=== PATIENT | male | born 1950 | race Caucasian/White ===

== ENCOUNTER 2018-03-21 06:10 | Day surgery (SDC) | payer MEDICARE, BC ==
[~2018-03-21 06:10] MED LIST: Acetaminophen 325 MG Tab PO SCH; Lactated Ringers 1,000 ML IV SCH; Lidocaine 1%/Sod Bicarbonate in NS 8.4% 1 ML Syringe IDERM PRN; Pregabalin 25 MG Cap PO SCH; Sodium Chloride 0.9% 10 ML Syringe FLUSH PRN
[2018-03-21] MEDS ORDERED: Iodine/Sodium Iodide 2% Tincture 30 ML Bottle ONE (06:46)
[2018-03-21] MEDS ORDERED: ceFAZolin 1 GM Vial ONE ×2 (06:46→06:54)
[2018-03-21] MEDS ORDERED: Vancomycin 1 GM SDV ONE (06:46)
[2018-03-21] MEDS ORDERED: Bupivacaine 0.25% 30 ML SDV ONE (06:46)
[2018-03-21] MEDS ORDERED: Morphine 2 MG/ML Syringe IVPUSH PRN (06:52)
[2018-03-21] MEDS ORDERED: fentaNYL 100 MCG/2 ML SDV ONE (06:53)
[2018-03-21] MEDS ORDERED: Midazolam 1 MG/ML 2 ML SDV ONE (06:53)
[2018-03-21] MEDS ORDERED: Propofol 200 MG/20 ML SDV ONE (06:53)
[2018-03-21] MEDS ORDERED: Ketamine 500 mg/10 ML MDV ONE (06:54)
[2018-03-21] MEDS ORDERED: Bupivacaine 0.75% 30 ML SDV ONE (06:54)
[2018-03-21] MEDS ORDERED: Ondansetron 4 MG/2 ML SDV ONE (06:54)
[2018-03-21] MEDS ORDERED: Lidocaine 1% 4 ML ONE (06:54)
[2018-03-21] MEDS: oxyCODONE ER 10 MG TAB.ER PO SCH ×2 (07:05→07:06)
[2018-03-21] MEDS ORDERED: Dexamethasone 4 MG/ML 5 ML MDV ONE (07:29)
[2018-03-21] MEDS ORDERED: Morphine 8 MG, EPINEPHrine 0.3 MG, Cefuroxime 750 MG, Ketorolac 30 MG, Sodium Chloride ... ONE ×5 (07:35)
[2018-03-21] MEDS ORDERED: Phenylephrine/Normal Saline 100 MCG/ML 10 ML Syringe ONE (08:02)
[2018-03-21] MEDS ORDERED: Lactated Ringers 1,000 ML ONE ×2 (08:02→08:23)
--- NOTE | 2018-03-21 08:06 | PCM.PREANE ---
Preanesthetic Assessment - Procedure Proposed Procedure: Left Total Knee Arthroplasty - Anesthesia/Transfusion/Family Hx Anesthesia History: Prior Anesthesia Without Reaction Family History of Anesthesia Reaction: No Transfusion History: No Prior Transfusion(s) - Review of Systems General: No Symptoms Pulmonary: Cough (Chronic. Negative work up/chest x-ray.) Cardiovascular: No Symptoms Gastrointestinal: No Symptoms Neurological: No Symptoms Other: Reports: None - Physical Assessment NPO Status Date: 03/20/18 NPO Status Time: 20:30 O2 Sat by Pulse Oximetry: 93 Respiratory Rate: 16 Vital Signs: Last Vital Signs Temp 36.6 C 03/21/18 06:15 Pulse 73 03/21/18 06:15 Resp 16 03/21/18 06:15 BP 141/86 H 03/21/18 06:15 Pulse Ox 93 L 03/21/18 06:15 Height: 1.78 m Weight: 102.058 kg ASA Class: 2 Mental Status: Alert & Oriented x3 Airway Class: Mallampati = 3 Dentition: Reports: Normal Dentition, [place](s) Thyro-Mental Finger Breadths: 2 Mouth Opening Finger Breadths: 3 ROM/Head Extension: Full Lungs: Clear to Auscultation, Normal Respiratory Effort Cardiovascular: Regular Rate, Regular Rhythm - Allergies Allergies/Adverse Reactions: Allergies Allergy/AdvReac Type Severity Reaction Status Date / Time No Known Allergies Allergy Verified 03/18/18 14:45 - Acknowledgements Anesthesia Type Planned: Spinal, Regional Block (Adductor Canal Block, Post op. 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 Musculoskeletal History: Reports: Other (See Below) Other Musculoskeletal History: right foot pain, knee pain Neurological History: Reports: None Psychiatric History: Reports: None Endocrine/Metabolic History: Reports: None Hematologic History: Reports: None Immunologic History: Reports: None Oncologic (Cancer) History: Reports: None Dermatologic History: Reports: None - Past Surgical History Head Surgeries/Procedures: Reports: None HEENT Surgical History: Reports: None Cardiovascular Surgical History: Reports: None Respiratory Surgical History: Reports: None GI Surgical History: Reports: Colonoscopy Female Surgical History: Reports: None Male Surgical History: Reports: None Neurological Surgical History: Reports: None Musculoskeletal Surgical History: Reports: Other (See Below) Other Musculoskeletal Surgeries/Procedures:: rotator cuff repair, tendesis of biceps tendon Dermatological Surgical History: Reports: None - HOME MEDS Home Medications: Home Meds Cholecalciferol (Vitamin D3) [Vitamin D3] 5,000 unit PO DAILY 03/18/18 [History] Glucosamine/D3/Boswellia [place] [Osteo Bi-Flex Caplet] 1 tab PO DAILY 03/18/18 [ History] Magnesium Oxide [Magnesium] 1,000 mg PO DAILY 03/18/18 [History] - CURRENT (IN HOUSE) MEDS Current Meds: Current Medications Acetaminophen (Tylenol) 975 mg PO ASDIRECTED [facility] Stop: 03/21/18 18:00 Last Admin: 03/21/18 07:05 Dose: 975 mg Aspirin (Ecotrin) 325 mg PO BID JOSEPH Bisacodyl (Dulcolax) 5 mg PO DAILY PRN PRN Reason: Constipation Cyclobenzaprine HCl (Flexeril) 10 mg PO TID PRN PRN Reason: Spasms Docusate Sodium (Colace) 100 mg PO BID JOSEPH Famotidine (Pepcid) 20 mg PO Q12H [facility] Lactated Ringer's (Ringers, Lactated) 1,000 mls @ 125 mls/hr IV ASDIRECTED [facility] Stop: 03/21/18 23:00 Last Admin: 03/21/18 06:35 Dose: 125 mls/hr Cefazolin Sodium/Dextrose 2 gm (/ Premix) 50 mls @ 100 mls/hr IV Q8H [facility] Stop: 03/22/18 07:29 Ketorolac Tromethamine (Toradol) 15 mg IVPUSH Q6H PRN PRN Reason: Pain Lidocaine/Sodium Bicarbonate (Buffered Lidocaine 1% In Ns 8.4%) 0.25 ml IDERM ONETIME PRN PRN Reason: Prior to IV Start Stop: 03/21/18 18:00 Magnesium Hydroxide (Milk Of Magnesia) 30 ml PO BID PRN PRN Reason: Constipation Morphine Sulfate (Morphine) 2 mg IVPUSH Q2H PRN PRN Reason: Breakthrough Pain Naloxone HCl (Narcan) 0.1 mg IVPUSH Q5M PRN PRN Reason: Oversedation Ondansetron HCl (Zofran) 4 mg IVPUSH Q6H PRN PRN Reason: Nausea/Vomiting Oxycodone HCl (Oxycontin) 10 mg PO ASDIRECTED [facility] Stop: 03/21/18 18:00 Last Admin: 03/21/18 07:06 Dose: 10 mg Oxycodone/Acetaminophen (Percocet 325-5 Mg) 1 - 2 tab PO Q4H PRN PRN Reason: Pain Pregabalin (Lyrica) 50 mg PO ASDIRECTED [facility] Stop: 03/21/18 18:00 Last Admin: 03/21/18 07:05 Dose: 50 mg Senna (Senna) 8.6 mg PO BID PRN PRN Reason: Constipation Sodium Chloride (Saline Flush) 10 ml FLUSH ASDIRECTED PRN PRN Reason: Keep Vein Open Stop: 03/21/18 18:00 Discontinued Medications Bupivacaine HCl (Marcaine 0.25%) Confirm Administered Dose 30 ml .ROUTE .STK- MED ONE Stop: 03/21/18 06:47 Bupivacaine HCl (Sensorcaine-Mpf 0.75%) Confirm Administered Dose 30 ml .ROUTE .STK-MED ONE Stop: 03/21/18 06:55 Cefazolin Sodium (Ancef) Confirm Administered Dose 2 gm .ROUTE .STK-MED ONE Stop: 03/21/18 06:47 Cefazolin Sodium (Ancef) Confirm Administered Dose 2 gm .ROUTE .STK-MED ONE Stop: 03/21/18 06:55 Morphine Sulfate 8 mg/Epinephrine HCl 0.3 mg/Cefuroxime Sodium 750 mg/Ketorolac Tromethamine 30 mg/Sodium Chloride 27.9 ml 0 mg .XX ONETIME ONE Stop: 03/21/18 07:36 Dexamethasone (Dexamethasone) Confirm Administered Dose 20 mg .ROUTE .STK-MED ONE Stop: 03/21/18 07:30 Fentanyl (Sublimaze) Confirm Administered Dose 100 mcg .ROUTE .STK-MED ONE Stop: 03/21/18 06:54 Glycopyrrolate () Confirm Administered Dose 1 mg .ROUTE .STK-MED ONE Stop: 03/21/18 07:32 Lidocaine HCl (Xylocaine-Mpf 1%) Confirm Administered Dose 4 mls @ as directed .ROUTE .STK-MED ONE Stop: 03/21/18 06:55 Iodine (Iodine 2% Mild Tincture) Confirm Administered Dose 30 ml .ROUTE .STK- MED ONE Stop: 03/21/18 06:47 Ketamine HCl (Ketalar) Confirm Administered Dose 500 mg .ROUTE .STK-MED ONE Stop: 03/21/18 06:55 Lidocaine HCl (Xylocaine-Mpf 1%) Confirm Administered Dose 5 ml .ROUTE .STK-MED ONE Stop: 03/21/18 06:55 Midazolam HCl (Versed 1 Mg/Ml) Confirm Administered Dose 2 mg .ROUTE .STK-MED ONE Stop: 03/21/18 06:54 Ondansetron HCl (Zofran) Confirm Administered Dose 4 mg .ROUTE .STK-MED ONE Stop: 03/21/18 06:55 Propofol (Diprivan 20 Ml) Confirm Administered Dose 600 mg .ROUTE .STK-MED ONE Stop: 03/21/18 06:54 Tranexamic Acid (Cyklokapron) Confirm Administered Dose 1,000 mg .ROUTE .STK- MED ONE Stop: 03/21/18 06:46 Vancomycin HCl (Vancomycin) Confirm Administered Dose 1 gm .ROUTE .STK-MED ONE Stop: 03/21/18 06:47
[2018-03-21] MEDS ORDERED: Ondansetron 4 MG/2 ML SDV IVPUSH PRN ×2 (08:07→09:00)
[2018-03-21] MEDS ORDERED: fentaNYL 100 MCG/2 ML SDV IVPUSH PRN (08:07)
[2018-03-21] MEDS ORDERED: Albuterol 0.083% 2.5 MG/3 ML Neb Soln NEB ONE (08:07)
[2018-03-21] MEDS ORDERED: Meperidine PF 50 MG/ML Syringe IVPUSH PRN (08:07)
[2018-03-21] MEDS ORDERED: ePHEDrine 50 MG/ML SDV IVPUSH PRN (08:07)
[2018-03-21] MEDS ORDERED: HYDROmorphone 0.5 MG/0.5 ML Syringe IVPUSH PRN (08:07)
[2018-03-21] MEDS ORDERED: diphenhydrAMINE 50 MG/ML SDV IVPUSH PRN (08:07)
[2018-03-21] MEDS ORDERED: Bisacodyl 5 MG Tab PO PRN (09:00)
[2018-03-21] MEDS ORDERED: Magnesium Hydroxide 400 MG/5 ML Susp 30 ML Cup PO PRN (09:00)
[2018-03-21] MEDS ORDERED: Naloxone 0.4 MG/ML SDV IVPUSH PRN (09:00)
[2018-03-21] MEDS ORDERED: Cyclobenzaprine 10 MG Tab PO PRN (09:00)
[2018-03-21] MEDS ORDERED: Ketorolac 15 MG/ML SDV IVPUSH PRN (09:00)
[2018-03-21] MEDS ORDERED: Sennosides 8.6 MG Tab PO PRN (09:00)
[2018-03-21] MEDS ORDERED: EPINEPHrine 1 MG/ML SDV ONE (09:08)
[2018-03-21] MEDS ORDERED: Ropivacaine 0.5% 5 MG/ML 30 ML SDV ONE (09:08)
--- NOTE | 2018-03-21 09:49 | CR ---
Left knee: AP and lateral views of the left knee were obtained. Comparison: No prior knee exam. Knee prosthesis is seen. Components are aligned. Soft tissue air is noted from the surgical procedure. No acute bony abnormality is seen. Impression: 1. Satisfactory radiographic appearance of recently placed left knee prosthesis. Diagnostic code #2
--- NOTE | 2018-03-21 10:30 | PCM.POSTAN ---
POST ANESTHESIA ASSESSMENT - MENTAL STATUS Mental Status: Alert, Oriented - VITAL SIGNS Pulse Rate: 73 SaO2: 94 Resp Rate: 16 Blood Pressure: 94/57 Temperature: 36.4 C - RESPIRATORY Respiratory Status: Respiratory Rate WNL, Airway Patent, O2 Saturation Stable, Supplemental Oxygen - CARDIOVASCULAR CV Status: Pulse Rate WNL, Blood Pressure Stable - GASTROINTESTINAL GI Status: No Symptoms - PAIN Pain Score: 0 - POST OP HYDRATION Hydration Status: Adequate & Stable
--- NOTE | 2018-03-21 10:32 | PCM.SN ---
- Free Text/Narrative Note: Left selective femoral nerve block at the adductor canal for post-procedure pain control under US guidance requested by Dr. De Luna. Time Out: 916 Start:911 End: 920 Chart reviewed. Consent signed. Questions answered. Appropriate monitors applied. Time out performed. Left mid-shaft femur identified with ultrasound, scanning medially of femur, the femoral artery in the adductor canal visualized , and the femoral nerve located laterally to the artery. The skin was prepped lateral to the ultrasound probe with chlorahexadine times two. The 21ga 4 insulated block needle was inserted under direct ultrasound guidance into the adductor canal. 20mL of 0.5% ropivacaine with 1:200,000 epinephrine was injected circumferentially around the nerve with intermittent negative aspiration noted. Patient tolerated the procedure well. Aseptic technique noted along with sterile gloves, mask, and sterile tegaderm probe cover. See pictures on progress note and vital signs on nurses notes. Block completed in PACU. Gilbert Latham CRNA
[2018-03-21] MEDS: Acetaminophen/oxyCODONE 325-5 MG Tab PO PRN ×2 (14:25→18:31)
[2018-03-21] MEDS: ceFAZolin 2 GM in Premix Bag 1 BAG IV SCH ×2 (14:26→22:01)
--- NOTE | 2018-03-21 14:48 | PCM.CONS ---
H&P History of Present Illness - General Date of Service: 03/21/18 Admit Problem/Dx: Admission Diagnosis/Problem Admission Diagnosis/Problem Osteoarthritis of knee Source of Information: Patient, Old Records, Provider History Limitations: Reports: No Limitations - History of Present Illness Initial Comments - Free Text/Narative: Mynor is a 67 yo male patient of Dr. De Luna who is post-operative day 0 of left TKA. Hospital medicine was consulted for post-operative medical care. At this time he is stable. Pain is controlled. He denies any chest pain, shortness of breath, palpitations, nausea, or vomiting. He carries a history of: Rotator cuff repair, tendesis of biceps tendon. He never smoked but does admit to chewing tobacco for 35 years- quit 3.5 years ago. He is a full code. Left Knee Pain Score (Numeric/FACES): 1 - Related Data Allergies/Adverse Reactions: Allergies Allergy/AdvReac Type Severity Reaction Status Date / Time No Known Allergies Allergy Verified 03/18/18 14:45 Home Medications: Home Meds Cholecalciferol (Vitamin D3) [Vitamin D3] 5,000 unit PO DAILY 03/18/18 [History] Glucosamine/D3/Boswellia [place] [Osteo Bi-Flex Caplet] 1 tab PO DAILY 03/18/18 [ History] Magnesium Oxide [Magnesium] 1,000 mg PO DAILY 03/18/18 [History] Past Medical History HEENT History: Reports: Impaired Vision, Other (See Below) Other HEENT History: glasses Cardiovascular History: Reports: None Respiratory History: Reports: None Genitourinary History: Reports: Other (See Below) Other 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 Musculoskeletal History: Reports: Other (See Below) Other Musculoskeletal History: right foot pain, knee pain Neurological History: Reports: None Psychiatric History: Reports: None Endocrine/Metabolic History: Reports: None Hematologic History: Reports: None Immunologic History: Reports: None Oncologic (Cancer) History: Reports: None Dermatologic History: Reports: None - Past Surgical History Head Surgeries/Procedures: Reports: None HEENT Surgical History: Reports: None Cardiovascular Surgical History: Reports: None Respiratory Surgical History: Reports: None GI Surgical History: Reports: Colonoscopy Female Surgical History: Reports: None Male Surgical History: Reports: None Neurological Surgical History: Reports: None Musculoskeletal Surgical History: Reports: Other (See Below) Other Musculoskeletal Surgeries/Procedures:: rotator cuff repair, tendesis of biceps tendon Dermatological Surgical History: Reports: None H&P Review of Systems - Review of Systems: Review Of Systems: See Below General: Reports: No Symptoms. Denies: Fever, Chills HEENT: Reports: No Symptoms Pulmonary: Reports: No Symptoms. Denies: Shortness of Breath, Wheezing, Pleuritic Chest Pain, Cough Cardiovascular: Reports: No Symptoms. Denies: Chest Pain, Palpitations, Edema Gastrointestinal: Reports: No Symptoms. Denies: Abdominal Pain, Diarrhea, Nausea, Vomiting Genitourinary: Reports: No Symptoms. Denies: Dysuria, Frequency, Burning, Pain Musculoskeletal: Reports: Joint Pain (L knee 12/01, s/p L TKA) Skin: Reports: No Symptoms Psychiatric: Reports: No Symptoms Neurological: Reports: No Symptoms Hematologic/Lymphatic: Reports: No Symptoms Immunologic: Reports: No Symptoms Exam - Exam Exam: See Below - Vital Signs Vital Signs: Last Vital Signs Temp 97.6 F 03/21/18 10:30 Pulse 73 03/21/18 10:30 Resp 16 03/21/18 10:30 BP 94/57 L 03/21/18 10:30 Pulse Ox 94 L 03/21/18 10:30 Weight: 225 lb - Exam Quality Assessment: Supplemental Oxygen (2L nasal cannula), DVT Prophylaxis. No : Urinary Catheter General: Alert, Oriented, Cooperative, Mild Distress HEENT: PERRLA, Hearing Intact, Mucosa Moist & [place], Nares Patent, Normal Nasal Septum, Posterior Pharynx Clear, Conjunctiva Clear, EOMI, EACs Clear, TMs Clear Neck: Supple, Trachea Midline, 2 Lungs: Clear to Auscultation, Normal Respiratory Effort Cardiovascular: Regular Rate, Regular Rhythm GI/Abdominal Exam: Normal Bowel Sounds, Soft, Non-Tender, No Organomegaly, No Distention, No Abnormal Bruit, No Mass, Pelvis Stable (Male) Exam: Deferred Rectal (Males) Exam: Deferred Back Exam: Normal Inspection, Full Range of Motion Extremities: Normal Inspection, Non-Tender, No Pedal Edema, Normal Capillary Refill, Limited Range of Motion (s/p L TKA) Peripheral Pulses: 2+: Posterior Tibial (L), Posterior Tibial (R), Dorsalis Pedis (L), Dorsalis Pedis (R) Skin: Warm, Dry, Intact Neurological: Cranial Nerves Intact (grossly) Neuro Extensive - Mental Status: Alert, Oriented x3, Normal Mood/Affect, Normal Cognition Psychiatric: Alert, Normal Affect, Normal Mood Consult PN Assessment/Plan POD#: 0 Procedures: Procedures ASSAY OF PREALBUMIN (03/09/18) ASSAY OF SERUM ALBUMIN (03/09/18) COMPLETE CBC W/AUTO DIFF WBC (03/09/18) DXA BONE DENSITY AXIAL (03/09/18) ELECTROCARDIOGRAM TRACING (03/09/18) METABOLIC PANEL TOTAL CA (03/09/18) MR-STAPH DNA AMP PROBE (03/09/18) OFFICE/OUTPATIENT VISIT EST (03/09/18) PROTHROMBIN TIME (03/09/18) ROUTINE VENIPUNCTURE (03/09/18) THROMBOPLASTIN TIME PARTIAL (03/09/18) X-RAY EXAM CHEST 2 VIEWS (03/09/18) X-RAY EXAM OF FOOT (08/11/17) Problem List Initiated/Reviewed/Updated: Yes Plan: I/P: Acute: S/P left total knee arthroplasty - post-operative day 0 -DVT prophylaxis and pain management per primary care team -PT/OT -IS/RT -Monitor oxygen saturation -Titrate oxygen as needed -Vital signs stable -Monitor labs -Pre-operative Hgb was 14.9 Chronic: None Plan: CM for discharge planning GI prophylaxis: Pepcid DVT/PE prophylaxis: ASA, SCD Home medications as indicated Other orders as listed above Routine AM labs He is a full code. Thank you for allowing us to participate in the care of this patient!!
[2018-03-21] MEDS ORDERED: Cholecalciferol (Vitamin D3) 1,000 Unit Tab PO SCH (21:00)
[2018-03-21] MEDS ORDERED: Magnesium Oxide 400 MG Tab PO SCH (21:00)
[2018-03-21] MEDS: Famotidine 20 MG Tab PO SCH (21:59)
[2018-03-21] MEDS: Docusate Sodium 100 MG Cap PO SCH (22:03)
[2018-03-22] MEDS: Acetaminophen/oxyCODONE 325-5 MG Tab PO PRN ×3 (01:27→11:38)
[2018-03-22] MEDS: ceFAZolin 2 GM in Premix Bag 1 BAG IV SCH (06:32)
--- NOTE | 2018-03-22 07:44 | PCM.CONSN ---
- General Info Date of Service: 03/22/18 Admission Dx/Problem (Free Text): Admission Diagnosis/Problem Admission Diagnosis/Problem Osteoarthritis of knee Subjective Update: In to see Mnyor. He is lying in bed. Pain is 1/10. He has been working with PT/ OT. No patient concerns. No nursing concerns. He has urinated. Functional Status: Reports: Pain Controlled, Tolerating Diet, Ambulating, Urinating. Denies: New Symptoms - Review of Systems General: Reports: No Symptoms HEENT: Reports: No Symptoms Pulmonary: Reports: No Symptoms Cardiovascular: Reports: No Symptoms Gastrointestinal: Reports: No Symptoms Genitourinary: Reports: No Symptoms Musculoskeletal: Reports: Joint Pain Skin: Reports: No Symptoms Neurological: Reports: No Symptoms Psychiatric: Reports: No Symptoms - Patient Data Vitals - Most Recent: Last Vital Signs Temp 98.8 F 03/22/18 05:43 Pulse 89 03/22/18 05:43 Resp 20 03/22/18 05:43 BP 148/85 H 03/22/18 05:43 Pulse Ox 93 L 03/22/18 05:43 Weight - Most Recent: 225 lb I&O - Last 24 Hours: Intake & Output 03/21/18 03/22/18 03/22/18 22:59 06:59 14:59 Intake Total 300 Balance 300 Lab Results Last 24 Hours: Laboratory Results - last 24 hr 03/22/18 03/22/18 Range/Units 05:39 05:39 WBC 12.85 H (4.23-9.07) K/mm3 RBC 3.85 L (4.63-6.08) M/mm3 Hgb 12.2 L (13.7-17.5) gm/L Hct 36.8 L (40.1-51.0) % MCV 95.6 H (79.0-92.2) fl MCH 31.7 (25.7-32.2) pg MCHC 33.2 (32.2-35.5) g/dl RDW Std Deviation 42.2 (35.1-43.9) fL Plt Count 192 (163-337) K/mm3 MPV 10.6 (9.4-12.3) fl Sodium 131 L (136-145) mEq/L Potassium 4.0 (3.5-5.1) mEq/L Chloride 99 (98-107) mEq/L Carbon Dioxide 26 (21-32) mEq/L Anion Gap 10.0 (5-15) BUN 20 H (7-18) mg/dL Creatinine 0.9 (0.7-1.3) mg/dL Est Cr Clr Drug Dosing 83.36 mL/min Estimated GFR (MDRD) > 60 (>60) mL/min BUN/Creatinine Ratio 22.2 H (14-18) Glucose 140 H (80-115) mg/dL Calcium 8.2 L (8.5-10.1) mg/dL Total Bilirubin 0.5 (0.2-1.0) mg/dL AST 16 (15-37) U/L ALT 8 L (16-63) U/L Alkaline Phosphatase 49 (46-116) U/L Total Protein 5.9 L (6.4-8.2) g/dl Albumin 2.9 L (3.4-5.0) g/dl Globulin 3.0 gm/dL Albumin/Globulin Ratio 1.0 (1-2) Med Orders - Current: Current Medications Aspirin (Ecotrin) 325 mg PO BID [facility] Bisacodyl (Dulcolax) 5 mg PO DAILY PRN PRN Reason: Constipation Cholecalciferol (Vitamin D3) 5,000 units PO BEDTIME [facility] Last Admin: 03/21/18 21:59 Dose: 5,000 units Cyclobenzaprine HCl (Flexeril) 10 mg PO TID PRN PRN Reason: Spasms Docusate Sodium (Colace) 100 mg PO BID [facility] Last Admin: 03/21/18 22:03 Dose: 100 mg Famotidine (Pepcid) 20 mg PO Q12H [facility] Last Admin: 03/21/18 21:59 Dose: 20 mg Ketorolac Tromethamine (Toradol) 15 mg IVPUSH Q6H PRN PRN Reason: Pain Magnesium Hydroxide (Milk Of Magnesia) 30 ml PO BID PRN PRN Reason: Constipation Magnesium Oxide (Magnesium Oxide) 1,000 mg PO BEDTIME [facility] Last Admin: 03/21/18 21:58 Dose: 1,000 mg Morphine Sulfate (Morphine) 2 mg IVPUSH Q2H PRN PRN Reason: Breakthrough Pain Naloxone HCl (Narcan) 0.1 mg IVPUSH Q5M PRN PRN Reason: Oversedation Ondansetron HCl (Zofran) 4 mg IVPUSH Q6H PRN PRN Reason: Nausea/Vomiting Oxycodone/Acetaminophen (Percocet 325-5 Mg) 1 - 2 tab PO Q4H PRN PRN Reason: Pain Last Admin: 03/22/18 06:56 Dose: 2 tab Senna (Senna) 8.6 mg PO BID PRN PRN Reason: Constipation Discontinued Medications Acetaminophen (Tylenol) 975 mg PO ASDIRECTED [facility]SE[facility] Stop: 03/21/18 18:00 Last Admin: 03/21/18 07:05 Dose: 975 mg Albuterol (Proventil Neb Soln) 2.5 mg NEB ONETIME ONE Stop: 03/21/18 08:08 Last Admin: 03/21/18 11:22 Dose: Not Given Bupivacaine HCl (Marcaine 0.25%) Confirm Administered Dose 30 ml .ROUTE .STK- MED ONE Stop: 03/21/18 06:47 Last Admin: 03/21/18 08:27 Dose: 30 ml Bupivacaine HCl (Sensorcaine-Mpf 0.75%) Confirm Administered Dose 30 ml .ROUTE .STK-MED ONE Stop: 03/21/18 06:55 Cefazolin Sodium (Ancef) Confirm Administered Dose 2 gm .ROUTE .STK-MED ONE Stop: 03/21/18 06:47 Last Admin: 03/21/18 08:22 Dose: 2 gm Cefazolin Sodium (Ancef) Confirm Administered Dose 2 gm .ROUTE .STK-MED ONE Stop: 03/21/18 06:55 Morphine Sulfate 8 mg/Epinephrine HCl 0.3 mg/Cefuroxime Sodium 750 mg/Ketorolac Tromethamine 30 mg/Sodium Chloride 27.9 ml 0 mg .XX ONETIME ONE Stop: 03/21/18 07:36 Last Admin: 03/21/18 08:26 Dose: 788.3 mg Dexamethasone (Dexamethasone) Confirm Administered Dose 20 mg .ROUTE .STK-MED ONE Stop: 03/21/18 07:30 Diphenhydramine HCl (Benadryl) 25 mg IVPUSH Q6H PRN PRN Reason: Pruritis Stop: 03/21/18 12:00 Ephedrine Sulfate (Ephedrine Sulfate) 5 mg IVPUSH ASDIRECTED PRN PRN Reason: Hypotension Stop: 03/21/18 12:00 Epinephrine HCl (Adrenalin) Confirm Administered Dose 1 mg .ROUTE .STK-MED ONE Stop: 03/21/18 09:09 Fentanyl (Sublimaze) Confirm Administered Dose 100 mcg .ROUTE .STK-MED ONE Stop: 03/21/18 06:54 Fentanyl (Sublimaze) 50 mcg IVPUSH Q5M PRN PRN Reason: Pain Stop: 03/21/18 12:00 Glycopyrrolate () Confirm Administered Dose 1 mg .ROUTE .STK-MED ONE Stop: 03/21/18 07:32 Hydromorphone HCl (Dilaudid) 0.5 mg IVPUSH ASDIRECTED PRN PRN Reason: Severe Pain Stop: 03/21/18 11:00 Lactated Ringer's (Ringers, Lactated) 1,000 mls @ 125 mls/hr IV ASDIRECTED JOSEPH Stop: 03/21/18 23:00 Last Admin: 03/21/18 06:35 Dose: 125 mls/hr Lidocaine HCl (Xylocaine-Mpf 1%) Confirm Administered Dose 4 mls @ as directed .ROUTE .STK-MED ONE Stop: 03/21/18 06:55 Cefazolin Sodium/Dextrose 2 gm (/ Premix) 50 mls @ 100 mls/hr IV Q8H [facility] Stop: 03/22/18 07:29 Last Admin: 03/22/18 06:32 Dose: 100 mls/hr Lactated Ringer's (Ringers, Lactated) Confirm Administered Dose 1,000 mls @ as directed .ROUTE .STK-MED ONE Stop: 03/21/18 08:03 Lactated Ringer's (Ringers, Lactated) Confirm Administered Dose 1,000 mls @ as directed .ROUTE .STK-MED ONE Stop: 03/21/18 08:24 Iodine (Iodine 2% Mild Tincture) Confirm Administered Dose 30 ml .ROUTE .STK- MED ONE Stop: 03/21/18 06:47 Last Admin: 03/21/18 08:17 Dose: 18 ml Ketamine HCl (Ketalar) Confirm Administered Dose 500 mg .ROUTE .STK-MED ONE Stop: 03/21/18 06:55 Lidocaine HCl (Xylocaine-Mpf 1%) Confirm Administered Dose 5 ml .ROUTE .STK-MED ONE Stop: 03/21/18 06:55 Lidocaine/Sodium Bicarbonate (Buffered Lidocaine 1% In Ns 8.4%) 0.25 ml IDERM ONETIME PRN PRN Reason: Prior to IV Start Stop: 03/21/18 18:00 Last Admin: 03/21/18 06:34 Dose: 0.25 ml Meperidine HCl (Demerol) 12.5 mg IVPUSH ONETIME PRN PRN Reason: Shivering Stop: 03/21/18 12:00 Midazolam HCl (Versed 1 Mg/Ml) Confirm Administered Dose 2 mg .ROUTE .STK-MED ONE Stop: 03/21/18 06:54 Non-Formulary Medication (Glucosamine/D3/Boswellia [place] [Osteo Bi-Flex Caplet] ) 1 tab PO DAILY [facility] Ondansetron HCl (Zofran) Confirm Administered Dose 4 mg .ROUTE .STK-MED ONE Stop: 03/21/18 06:55 Ondansetron HCl (Zofran) 4 mg IVPUSH ONETIME PRN PRN Reason: Nausea/Vomiting Stop: 03/21/18 12:00 Oxycodone HCl (Oxycontin) 10 mg PO ASDIRECTED [facility] Stop: 03/21/18 18:00 Last Admin: 03/21/18 07:06 Dose: 10 mg Phenylephrine HCl (Phenylephrine In Ns 100 Mcg/Ml) Confirm Administered Dose 1 mg .ROUTE .STK-MED ONE Stop: 03/21/18 08:03 Pregabalin (Lyrica) 50 mg PO ASDIRECTED [facility] Stop: 03/21/18 18:00 Last Admin: 03/21/18 07:05 Dose: 50 mg Propofol (Diprivan 20 Ml) Confirm Administered Dose 600 mg .ROUTE .STK-MED ONE Stop: 03/21/18 06:54 Ropivacaine (Naropin 0.5%) Confirm Administered Dose 30 ml .ROUTE .STK-MED ONE Stop: 03/21/18 09:09 Sodium Chloride (Saline Flush) 10 ml FLUSH ASDIRECTED PRN PRN Reason: Keep Vein Open Stop: 03/21/18 18:00 Tranexamic Acid (Cyklokapron) Confirm Administered Dose 1,000 mg .ROUTE .STK- MED ONE Stop: 03/21/18 06:46 Last Admin: 03/21/18 08:37 Dose: 1,000 mg Vancomycin HCl (Vancomycin) Confirm Administered Dose 1 gm .ROUTE .HomeJab-MED ONE Stop: 03/21/18 06:47 Last Admin: 03/21/18 08:28 Dose: 1 gm - Exam Quality Assessment: DVT Prophylaxis General: Alert, Oriented, Cooperative, No Acute Distress HEENT: Pupils Equal, Pupils Reactive, EOMI, Mucous Membr. Moist/[place] Neck: Supple, Trachea Midline Lungs: Clear to Auscultation, Normal Respiratory Effort Cardiovascular: Regular Rate, Regular Rhythm GI/Abdominal Exam: Normal Bowel Sounds, Soft, Non-Tender, No Organomegaly, No Distention, No Abnormal Bruit, No Mass, Pelvis Stable (Male) Exam: Deferred Back Exam: Normal Inspection, Full Range of Motion Extremities: No Pedal Edema, Normal Capillary Refill, Leg Pain, Limited Range of Motion, Other (bandage in place on right leg. ) Skin: Warm, Dry, Intact Wound/Incisions: Dressing Dry and Intact, No Drainage, Other (cooling pack in place ) Neurological: No New Focal Deficit Psy/Mental Status: Alert, Normal Affect, Normal Mood Consult PN Assessment/Plan POD#: 1 Procedures: Procedures ASSAY OF PREALBUMIN (03/09/18) ASSAY OF SERUM ALBUMIN (03/09/18) COMPLETE CBC W/AUTO DIFF WBC (03/09/18) DXA BONE DENSITY AXIAL (03/09/18) ELECTROCARDIOGRAM TRACING (03/09/18) METABOLIC PANEL TOTAL CA (03/09/18) MR-STAPH DNA AMP PROBE (03/09/18) OFFICE/OUTPATIENT VISIT EST (03/09/18) PROTHROMBIN TIME (03/09/18) ROUTINE VENIPUNCTURE (03/09/18) THROMBOPLASTIN TIME PARTIAL (03/09/18) X-RAY EXAM CHEST 2 VIEWS (03/09/18) X-RAY EXAM OF FOOT (08/11/17) (1) Osteoarthritis of knee SNOMED Code(s): 910942595 Code(s): M17.10 - UNILATERAL PRIMARY OSTEOARTHRITIS, UNSPECIFIED KNEE Current Visit: Yes (2) Status post total left knee replacement SNOMED Code(s): 5442648713411 Code(s): Z96.652 - PRESENCE OF LEFT ARTIFICIAL KNEE JOINT Current Visit: Yes Problem List Initiated/Reviewed/Updated: Yes Plan: I/P: Acute: S/P left total knee arthroplasty - post-operative day 1 -DVT prophylaxis and pain management per primary care team -PT/OT -IS/RT -Monitor oxygen saturation -Titrate oxygen as needed -Vital signs stable -Monitor labs -Pre-operative Hgb was 14.9, today 12.2 -Pre-operative eGFR was >60, today >60 Chronic: None Plan: CM for discharge planning GI prophylaxis: Pepcid DVT/PE prophylaxis: ASA, SCD Home medications as indicated Other orders as listed above Routine AM labs He is a full code. He is clear for discharge from a hospitalist standpoint pending primary team agreement. He has been doing well with PT/OT. He has urinated. His sodium was slightly low and he was notified of this. He was instructed to follow up with his PCP in the near future regarding this. Thank you for allowing us to participate in the care of this patient!!
--- NOTE | 2018-03-22 08:03 | PCM48HPAN ---
Post Anesthesia Note - EVALUATION WITHIN 48HRS OF ANESTHETIC Vital Signs in Normal Range: Yes Patient Participated in Evaluation: Yes Respiratory Function Stable: Yes Airway Patent: Yes Cardiovascular Function Stable: Yes Hydration Status Stable: Yes Pain Control Satisfactory: Yes Nausea and Vomiting Control Satisfactory: Yes Mental Status Recovered: Yes
--- NOTE | 2018-03-22 08:16 | PCM.SURGPN ---
- General Info Date of Service: 03/22/18 POD#: 1 Functional Status: Reports: Pain Controlled, Tolerating Diet, Ambulating, Urinating, Incentive Spirometry, Other (Nursing and pt state pt is doing well.) - Patient Data Vitals - Most Recent: Last Vital Signs Temp 98.8 F 03/22/18 05:43 Pulse 89 03/22/18 05:43 Resp 20 03/22/18 05:43 BP 148/85 H 03/22/18 05:43 Pulse Ox 93 L 03/22/18 05:43 Weight - Most Recent: 225 lb I&O - Last 24 Hours: Intake & Output 03/21/18 03/22/18 03/22/18 22:59 06:59 14:59 Intake Total 300 Balance 300 Lab Results Last 24 Hrs: Laboratory Results - last 24 hr 03/22/18 03/22/18 Range/Units 05:39 05:39 WBC 12.85 H (4.23-9.07) K/mm3 RBC 3.85 L (4.63-6.08) M/mm3 Hgb 12.2 L (13.7-17.5) gm/L Hct 36.8 L (40.1-51.0) % MCV 95.6 H (79.0-92.2) fl MCH 31.7 (25.7-32.2) pg MCHC 33.2 (32.2-35.5) g/dl RDW Std Deviation 42.2 (35.1-43.9) fL Plt Count 192 (163-337) K/mm3 MPV 10.6 (9.4-12.3) fl Sodium 131 L (136-145) mEq/L Potassium 4.0 (3.5-5.1) mEq/L Chloride 99 (98-107) mEq/L Carbon Dioxide 26 (21-32) mEq/L Anion Gap 10.0 (5-15) BUN 20 H (7-18) mg/dL Creatinine 0.9 (0.7-1.3) mg/dL Est Cr Clr Drug Dosing 83.36 mL/min Estimated GFR (MDRD) > 60 (>60) mL/min BUN/Creatinine Ratio 22.2 H (14-18) Glucose 140 H (80-115) mg/dL Calcium 8.2 L (8.5-10.1) mg/dL Total Bilirubin 0.5 (0.2-1.0) mg/dL AST 16 (15-37) U/L ALT 8 L (16-63) U/L Alkaline Phosphatase 49 (46-116) U/L Total Protein 5.9 L (6.4-8.2) g/dl Albumin 2.9 L (3.4-5.0) g/dl Globulin 3.0 gm/dL Albumin/Globulin Ratio 1.0 (1-2) Med Orders - Current: Current Medications Aspirin (Ecotrin) 325 mg PO BID [facility] Bisacodyl (Dulcolax) 5 mg PO DAILY PRN PRN Reason: Constipation Cholecalciferol (Vitamin D3) 5,000 units PO BEDTIME [facility] Last Admin: 03/21/18 21:59 Dose: 5,000 units Cyclobenzaprine HCl (Flexeril) 10 mg PO TID PRN PRN Reason: Spasms Docusate Sodium (Colace) 100 mg PO BID [facility] Last Admin: 03/21/18 22:03 Dose: 100 mg Famotidine (Pepcid) 20 mg PO Q12H [facility] Last Admin: 03/21/18 21:59 Dose: 20 mg Ketorolac Tromethamine (Toradol) 15 mg IVPUSH Q6H PRN PRN Reason: Pain Magnesium Hydroxide (Milk Of Magnesia) 30 ml PO BID PRN PRN Reason: Constipation Magnesium Oxide (Magnesium Oxide) 1,000 mg PO BEDTIME [facility] Last Admin: 03/21/18 21:58 Dose: 1,000 mg Morphine Sulfate (Morphine) 2 mg IVPUSH Q2H PRN PRN Reason: Breakthrough Pain Naloxone HCl (Narcan) 0.1 mg IVPUSH Q5M PRN PRN Reason: Oversedation Ondansetron HCl (Zofran) 4 mg IVPUSH Q6H PRN PRN Reason: Nausea/Vomiting Oxycodone/Acetaminophen (Percocet 325-5 Mg) 1 - 2 tab PO Q4H PRN PRN Reason: Pain Last Admin: 03/22/18 06:56 Dose: 2 tab Senna (Senna) 8.6 mg PO BID PRN PRN Reason: Constipation Discontinued Medications Acetaminophen (Tylenol) 975 mg PO ASDIRECTED [facility] Stop: 03/21/18 18:00 Last Admin: 03/21/18 07:05 Dose: 975 mg Albuterol (Proventil Neb Soln) 2.5 mg NEB ONETIME ONE Stop: 03/21/18 08:08 Last Admin: 03/21/18 11:22 Dose: Not Given Bupivacaine HCl (Marcaine 0.25%) Confirm Administered Dose 30 ml .ROUTE .STK- MED ONE Stop: 03/21/18 06:47 Last Admin: 03/21/18 08:27 Dose: 30 ml Bupivacaine HCl (Sensorcaine-Mpf 0.75%) Confirm Administered Dose 30 ml .ROUTE .STK-MED ONE Stop: 03/21/18 06:55 Cefazolin Sodium (Ancef) Confirm Administered Dose 2 gm .ROUTE .STK-MED ONE Stop: 03/21/18 06:47 Last Admin: 03/21/18 08:22 Dose: 2 gm Cefazolin Sodium (Ancef) Confirm Administered Dose 2 gm .ROUTE .STK-MED ONE Stop: 03/21/18 06:55 Morphine Sulfate 8 mg/Epinephrine HCl 0.3 mg/Cefuroxime Sodium 750 mg/Ketorolac Tromethamine 30 mg/Sodium Chloride 27.9 ml 0 mg .XX ONETIME ONE Stop: 03/21/18 07:36 Last Admin: 03/21/18 08:26 Dose: 788.3 mg Dexamethasone (Dexamethasone) Confirm Administered Dose 20 mg .ROUTE .STK-MED ONE Stop: 03/21/18 07:30 Diphenhydramine HCl (Benadryl) 25 mg IVPUSH Q6H PRN PRN Reason: Pruritis Stop: 03/21/18 12:00 Ephedrine Sulfate (Ephedrine Sulfate) 5 mg IVPUSH ASDIRECTED PRN PRN Reason: Hypotension Stop: 03/21/18 12:00 Epinephrine HCl (Adrenalin) Confirm Administered Dose 1 mg .ROUTE .STK-MED ONE Stop: 03/21/18 09:09 Fentanyl (Sublimaze) Confirm Administered Dose 100 mcg .ROUTE .STK-MED ONE Stop: 03/21/18 06:54 Fentanyl (Sublimaze) 50 mcg IVPUSH Q5M PRN PRN Reason: Pain Stop: 03/21/18 12:00 Glycopyrrolate () Confirm Administered Dose 1 mg .ROUTE .STK-MED ONE Stop: 03/21/18 07:32 Hydromorphone HCl (Dilaudid) 0.5 mg IVPUSH ASDIRECTED PRN PRN Reason: Severe Pain Stop: 03/21/18 11:00 Lactated Ringer's (Ringers, Lactated) 1,000 mls @ 125 mls/hr IV ASDIRECTED JOSEPH Stop: 03/21/18 23:00 Last Admin: 03/21/18 06:35 Dose: 125 mls/hr Lidocaine HCl (Xylocaine-Mpf 1%) Confirm Administered Dose 4 mls @ as directed .ROUTE .STK-MED ONE Stop: 03/21/18 06:55 Cefazolin Sodium/Dextrose 2 gm (/ Premix) 50 mls @ 100 mls/hr IV Q8H [facility] Stop: 03/22/18 07:29 Last Admin: 03/22/18 06:32 Dose: 100 mls/hr Lactated Ringer's (Ringers, Lactated) Confirm Administered Dose 1,000 mls @ as directed .ROUTE .STK-MED ONE Stop: 03/21/18 08:03 Lactated Ringer's (Ringers, Lactated) Confirm Administered Dose 1,000 mls @ as directed .ROUTE .STK-MED ONE Stop: 03/21/18 08:24 Iodine (Iodine 2% Mild Tincture) Confirm Administered Dose 30 ml .ROUTE .STK- MED ONE Stop: 03/21/18 06:47 Last Admin: 03/21/18 08:17 Dose: 18 ml Ketamine HCl (Ketalar) Confirm Administered Dose 500 mg .ROUTE .STK-MED ONE Stop: 03/21/18 06:55 Lidocaine HCl (Xylocaine-Mpf 1%) Confirm Administered Dose 5 ml .ROUTE .STK-MED ONE Stop: 03/21/18 06:55 Lidocaine/Sodium Bicarbonate (Buffered Lidocaine 1% In Ns 8.4%) 0.25 ml IDERM ONETIME PRN PRN Reason: Prior to IV Start Stop: 03/21/18 18:00 Last Admin: 03/21/18 06:34 Dose: 0.25 ml Meperidine HCl (Demerol) 12.5 mg IVPUSH ONETIME PRN PRN Reason: Shivering Stop: 03/21/18 12:00 Midazolam HCl (Versed 1 Mg/Ml) Confirm Administered Dose 2 mg .ROUTE .STK-MED ONE Stop: 03/21/18 06:54 Non-Formulary Medication (Glucosamine/D3/Boswellia [place] [Osteo Bi-Flex Caplet] ) 1 tab PO DAILY [facility] Ondansetron HCl (Zofran) Confirm Administered Dose 4 mg .ROUTE .STK-MED ONE Stop: 03/21/18 06:55 Ondansetron HCl (Zofran) 4 mg IVPUSH ONETIME PRN PRN Reason: Nausea/Vomiting Stop: 03/21/18 12:00 Oxycodone HCl (Oxycontin) 10 mg PO ASDIRECTED [facility] Stop: 03/21/18 18:00 Last Admin: 03/21/18 07:06 Dose: 10 mg Phenylephrine HCl (Phenylephrine In Ns 100 Mcg/Ml) Confirm Administered Dose 1 mg .ROUTE .STK-MED ONE Stop: 03/21/18 08:03 Pregabalin (Lyrica) 50 mg PO ASDIRECTED [facility] Stop: 03/21/18 18:00 Last Admin: 03/21/18 07:05 Dose: 50 mg Propofol (Diprivan 20 Ml) Confirm Administered Dose 600 mg .ROUTE .STK-MED ONE Stop: 03/21/18 06:54 Ropivacaine (Naropin 0.5%) Confirm Administered Dose 30 ml .ROUTE .STK-MED ONE Stop: 03/21/18 09:09 Sodium Chloride (Saline Flush) 10 ml FLUSH ASDIRECTED PRN PRN Reason: Keep Vein Open Stop: 03/21/18 18:00 Tranexamic Acid (Cyklokapron) Confirm Administered Dose 1,000 mg .ROUTE .STK- MED ONE Stop: 03/21/18 06:46 Last Admin: 03/21/18 08:37 Dose: 1,000 mg Vancomycin HCl (Vancomycin) Confirm Administered Dose 1 gm .ROUTE .STK-MED ONE Stop: 03/21/18 06:47 Last Admin: 03/21/18 08:28 Dose: 1 gm - Exam Wound/Incisions: Dressing Dry and Intact General: Alert, Cooperative, No Acute Distress Lungs: Normal Respiratory Effort Extremities: Other (NVS intact for LLE. Elzbieta's negative. Approx 90 degrees left knee flexion in sitting.) - Problem List Review Problem List Initiated/Reviewed/Updated: Yes - My Orders Last 24 Hours: Active Orders 24 hr Category Date Time Status Cooling Warming Measures [RC] ASDIRECTED Care 03/21/18 08:07 Inactive Notify Provider [RC] ASDIRECTED Care 03/21/18 08:07 Active Oxygen Therapy [RC] ASDIRECTED Care 03/21/18 08:07 Active Pulse Oximetry [RC] ASDIRECTED Care 03/21/18 08:07 Active Ready for Discharge [RC] PER UNIT ROUTINE Care 03/22/18 08:13 Ordered Regular Diet [DIET] Diet 03/21/18 Lunch Active Acetaminophen/oxyCODONE [Percocet 325-5 MG] Med 03/21/18 09:00 Active 1 - 2 tab PO Q4H PRN Aspirin [Ecotrin] Med 03/22/18 09:00 Active 325 mg PO BID Bisacodyl [Dulcolax] Med 03/21/18 09:00 Active 5 mg PO DAILY PRN Cholecalciferol (Vitamin D3) [Vitamin D3] Med 03/21/18 21:00 Active 5,000 units PO BEDTIME Cyclobenzaprine [Flexeril] Med 03/21/18 09:00 Active 10 mg PO TID PRN Docusate Sodium [Colace] Med 03/21/18 21:00 Active 100 mg PO BID Famotidine [Pepcid] Med 03/21/18 21:00 Active 20 mg PO Q12H Ketorolac [Toradol] Med 03/21/18 09:00 Active 15 mg IVPUSH Q6H PRN Magnesium Hydroxide [Milk of Magnesia] Med 03/21/18 09:00 Active 30 ml PO BID PRN Magnesium Oxide Med 03/21/18 21:00 Active 1,000 mg PO BEDTIME Naloxone [Narcan] Med 03/21/18 09:00 Active 0.1 mg IVPUSH Q5M PRN Ondansetron [Zofran] Med 03/21/18 09:00 Active 4 mg IVPUSH Q6H PRN Sennosides [Senna] Med 03/21/18 09:00 Active 8.6 mg PO BID PRN Medication Orders Aspirin (Ecotrin) 325 mg PO BID [facility] Bisacodyl (Dulcolax) 5 mg PO DAILY PRN PRN Reason: Constipation Cholecalciferol (Vitamin D3) 5,000 units PO BEDTIME [facility] Last Admin: 03/21/18 21:59 Dose: 5,000 units Cyclobenzaprine HCl (Flexeril) 10 mg PO TID PRN PRN Reason: Spasms Docusate Sodium (Colace) 100 mg PO BID [facility] Last Admin: 03/21/18 22:03 Dose: 100 mg Famotidine (Pepcid) 20 mg PO Q12H [facility] Last Admin: 03/21/18 21:59 Dose: 20 mg Ketorolac Tromethamine (Toradol) 15 mg IVPUSH Q6H PRN PRN Reason: Pain Magnesium Hydroxide (Milk Of Magnesia) 30 ml PO BID PRN PRN Reason: Constipation Magnesium Oxide (Magnesium Oxide) 1,000 mg PO BEDTIME [facility] Last Admin: 03/21/18 21:58 Dose: 1,000 mg Morphine Sulfate (Morphine) 2 mg IVPUSH Q2H PRN PRN Reason: Breakthrough Pain Naloxone HCl (Narcan) 0.1 mg IVPUSH Q5M PRN PRN Reason: Oversedation Ondansetron HCl (Zofran) 4 mg IVPUSH Q6H PRN PRN Reason: Nausea/Vomiting Oxycodone/Acetaminophen (Percocet 325-5 Mg) 1 - 2 tab PO Q4H PRN PRN Reason: Pain Last Admin: 03/22/18 06:56 Dose: 2 tab Admin: 03/22/18 01:27 Dose: 2 tab Admin: 03/21/18 18:31 Dose: 2 tab Admin: 03/21/18 14:25 Dose: 2 tab Senna (Senna) 8.6 mg PO BID PRN PRN Reason: Constipation - Assessment Assessment (Free Text/Narrative):: POD#1 - left TKA - Plan Plan (Free Text/Narrative):: 1. Pt is doing well. D/C to home today if cleared by Hospitalist service. 2. Discussed ASA BID, TEDs, frequent mobility with pt and significant other. 3. Outpatient P.T. 4. Hgb 12.2 today. The pt's case was discussed with Dr. De Luna.
[2018-03-22] MEDS ORDERED: [UNRECOGNIZED DRUG - OTHER] PO SCH (09:00)
[2018-03-22] MEDS ORDERED: BOSWELLIA SERRA T PO SCH (09:00)
[2018-03-22] MEDS ORDERED: D3 PO SCH (09:00)
[2018-03-22] MEDS ORDERED: GLUCOSAMINE PO SCH (09:00)
[2018-03-22] MEDS ORDERED: Aspirin 325 MG Tab.EC PO SCH (09:00)
[2018-03-22] MEDS: Docusate Sodium 100 MG Cap PO SCH (09:54)
[2018-03-22] MEDS: Famotidine 20 MG Tab PO SCH (09:54)
--- NOTE | 2018-03-31 22:21 | PCM.OPNOTE ---
- General Post-Op/Procedure Note Date of Surgery/Procedure: 03/21/18 Operative Procedure(s): left total knee arthroplasty Pre Op Diagnosis: left knee osteoarthrosis Post-Op Diagnosis: Same Anesthesia Technique: Local, MAC, Spinal Primary Surgeon: Dionte De Luna Anesthesia Provider: Peyton Latham Banana Room Cutter: Rosetta Logan Banana Room Cutter: Kathi Coughlin EBL in mLs: 500 Complications: None Condition: Good
--- NOTE | 2018-03-31 22:50 | OR ---
DATE OF OPERATION: 03/21/2018 SURGEON: Dionte De Luna MD OPERATION PERFORMED: Left total knee arthroplasty. PREOPERATIVE DIAGNOSIS: Left knee osteoarthrosis. POSTOPERATIVE DIAGNOSIS: Left knee osteoarthrosis. ANESTHESIA: Local MAC with spinal. ANESTHESIA PROVIDER: Lillie Laura. SAMPLING EXPERT: Rosetta Logan PA-C and Kathi Coughlin LPN. ESTIMATED BLOOD LOSS: 500 mL COMPLICATIONS: None. CONDITION: Stable. IMPLANTS: 1. Macario size 6 CR press-fit femur. 2. [place] size 6 press-fit tibial base plate. 3. Macario size 6 9 mm CS polyethylene insert. 4. [place] size 35 x 10 mm asymmetric press-fit patella. DESCRIPTION OF PROCEDURE: The patient was identified in the preop holding area. Proper site was marked and identified by the surgeon. The patient was taken back to the operating theater. After adequate anesthesia, the patient's left lower extremity had a nonsterile tourniquet applied and it was then sterilely prepped and draped in the usual sterile fashion. OR timeout was performed. The patient received 2 g IV Ancef. At this time, left lower extremity was exsanguinated. Tourniquet was insufflated to 300 mmHg. Standard medial parapatellar incision was made. Medial parapatellar arthrotomy was created. Deep fibers of the MCL were raised and anterior fat pad was resected. At this time, attention was turned to the patella. Patella measured 24, it was resected to a 14 for 35 x 10 mm patella. Drill holes were then drilled and found to be in adequate position. The drill was then drilled in the distal femur and the intramedullary distal femoral cutting guide was then placed. 8 mm was resected off the distal femur and was found to be an adequate resection. Sizing guide was placed. It was found to be a size 6 femur that was shown on the implant record at the beginning of this dictation. The drill holes were drilled for the epicondylar axis using Whitesides line and epicondyles as reference. At this time, the 4-in-1 cutting block was placed. An anterior posterior and anterior and posterior chamfer cuts were then completed. The correct size box cut was then placed and the box cut was completed and found to be an adequate resection. Attention was turned to the tibia. The posterior medial lateral retractors were placed. The extramedullary tibial guide was placed. It was placed in the old footprint of the ACL. It was aligned with the center of the ankle and 0 degrees of slope, 9 mm was then resected off the unaffected lateral side. There was found to be an acceptable reduction. At this time, posterior osteophytes were removed along with medial and lateral meniscus. A trial implant was placed with a correct sized tibia that was mentioned at the beginning of the dictation. A size 6, 9 mm CS polyethylene was then placed. The patient's knee was brought through range of motion. The patella was tracking centrally and was stable to varus and valgus stress. Alignment was found to be roughly at 0 degrees. The tibia was stamped and drilled in proper rotation. The universal tibial base plate was press-fit in place. Next, the size 6 CR press-fit femur was impacted into place and the size 6, 9 mm CS polyethylene was placed. The patient's knee was brought into full extension. The patella was then press-fit in place at this time. Tourniquet was deflated. One liter dilute Betadine solution was irrigated through the knee along with 3 L of pulse lavage irrigation with Ancef. Periarticular injection was then completed. The patient's knee was brought through a range of motion. Knee was found to be stable to varus valgus stress, the patella was tracking centrally with full range of motion. At this time, a #2 barbed suture was used for closure of the medial parapatellar arthrotomy. Topical tranexamic acid was placed. 2-0 Vicryl was used subcutaneously, a running 3-0 Monocryl was used subcuticularly. The patient tolerated the procedure well and was sent to the PACU in stable condition. ISELA /[id number] MINOO
== END 2018-03-22 11:42 | disposition home or self-care (01) ==
LOC: JD.SDS 06:10 → JD.ICU 06:13 → JD.MS 06:13 → JD.SDS 03-22 11:42
PROVIDERS: ATTEND Orthopaedic Surgery
DX: M17.0 Bilateral primary osteoarthritis of knee (principal); Z79.2 Long term (current) use of antibiotics; Z79.82 Long term (current) use of aspirin; Z79.899 Other long term (current) drug therapy; Z98.890 Other specified postprocedural states
CPT/HCPCS: 01402; 36415; 64450; 73560-26-LT; 73560-LT; 80053; 85027; 97110-GP; 97116-GP; 97161-GP; 97165-GO; 97535-GO; A9270-GY; C1776; J0171; J0690; J0697; J1100; J1885; J2001; J2250; J2270; J2405; J2704; J2795; J3010; J3370; J3490; J7120

== ENCOUNTER 2020-01-18 08:59 | Day surgery (SDC) | payer MEDICARE, BC ==
--- NOTE | 2020-01-18 09:59 | PCM.PREANE ---
Preanesthetic Assessment - Anesthesia/Transfusion/Family Hx Anesthesia History: Prior Anesthesia Without Reaction Family History of Anesthesia Reaction: No Transfusion History: No Prior Transfusion(s) Intubation History: Unknown - Review of Systems General: No Symptoms Pulmonary: No Symptoms (ETOH: whiskey once a week.) Cardiovascular: No Symptoms (History of elevated blood pressure reading) Gastrointestinal: No Symptoms Neurological: No Symptoms, Weakness ((2018)history of left hand weakness, and left leg weakness(stroke like symptoms)-symptoms have improved but are still present at times.) Other: Reports: None, Thyroid Problems (hypothyroid) - Physical Assessment NPO Status Date: 01/17/20 NPO Status Time: 04:05 Vital Signs: HR:79 BP:130/91 Sat:93% Resp:18 Temp:97.2 Height: 1.78 m Weight: 98 kg ASA Class: 2 Mental Status: Alert & Oriented x3 Airway Class: Mallampati = 2 Dentition: Reports: Normal Dentition, [place](s), Bridge (permanant bridge upper) Thyro-Mental Finger Breadths: 3 Mouth Opening Finger Breadths: 3 ROM/Head Extension: Full Lungs: Clear to Auscultation, Normal Respiratory Effort Cardiovascular: Regular Rate, Regular Rhythm, No Murmurs - Lab Values: All labs reviewed and noted and within acceptable ranges to proceed with scheduled procedure. - Imaging/EKG Impressions: EKG: SR rate=69, Mild LAD, consider septal hypertrophy Echocardiogram: EF= 61% - Allergies Allergies/Adverse Reactions: Allergies Allergy/AdvReac Type Severity Reaction Status Date / Time No Known Allergies Allergy Verified 01/17/20 15:50 - Anesthesia Plan Pre-Op Medication Ordered: None - Acknowledgements Anesthesia Type Planned: MAC Pt an Appropriate Candidate for the Planned Anesthesia: Yes Alternatives and Risks of Anesthesia Discussed w Pt/Guardian: Yes Pt/Guardian Understands and Agrees with Anesthesia Plan: Yes PreAnesthesia Questionnaire HEENT History: Reports: Impaired Vision, Other (See Below) Other HEENT History: glasses, ophthalmic artery aneurysm Cardiovascular History: Reports: Heart Murmur, High Cholesterol Respiratory History: Reports: Other (See Below) Other Respiratory History: cough Gastrointestinal History: Reports: None Genitourinary History: Reports: Other (See Below) Other Genitourinary History: dribbling, urgency 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 History: Reports: None Musculoskeletal History: Reports: Other (See Below) Other Musculoskeletal History: right foot pain, knee pain, left sided weakness, stooped posture, right rotator cuff tear Neurological History: Reports: None Psychiatric History: Reports: None Endocrine/Metabolic History: Reports: None Hematologic History: Reports: None Immunologic History: Reports: None Oncologic (Cancer) History: Reports: None Dermatologic History: Reports: None - Past Surgical History Head Surgeries/Procedures: Reports: None HEENT Surgical History: Reports: None, Naso-Sinus Surgery Cardiovascular Surgical History: Reports: None Respiratory Surgical History: Reports: None GI Surgical History: Reports: Colonoscopy Female Surgical History: Reports: None Male Surgical History: Reports: None Endocrine Surgical History: Reports: None Neurological Surgical History: Reports: None Musculoskeletal Surgical History: Reports: Knee Replacement, Other (See Below) Other Musculoskeletal Surgeries/Procedures:: rotator cuff repair, tendesis of biceps tendon Oncologic Surgical History: Reports: None Dermatological Surgical History: Reports: None - SUBSTANCE USE Smoking Status *Q: Former Smoker Recreational Drug Use History: No - HOME MEDS Home Medications: Home Meds Glucosamine [Glucosamine Sulfate] 500 mg PO DAILY 01/17/20 [History] Levothyroxine Sodium [Synthroid] 150 mcg PO DAILY 01/17/20 [History] Magnesium Oxide [Magnesium] 500 mg PO DAILY 01/17/20 [History] Rosuvastatin [Crestor] 5 mg PO DAILY 01/17/20 [History] Ubidecarenone [Coq-10] 100 mg PO DAILY 01/17/20 [History]
[2020-01-18] MEDS ORDERED: Lidocaine 1%/Sod Bicarbonate in NS 8.4% 1 ML Syringe IDERM PRN (10:11)
[2020-01-18] MEDS ORDERED: Sodium Chloride 0.9% 10 ML Syringe FLUSH PRN (10:11)
[2020-01-18] MEDS ORDERED: Lactated Ringers 1,000 ML IV SCH (10:15)
[2020-01-18] MEDS ORDERED: Lidocaine 1% 4 ML ONE (10:44)
[2020-01-18] MEDS ORDERED: Propofol 200 MG/20 ML SDV ONE ×3 (10:45→11:58)
[2020-01-18] MEDS ORDERED: fentaNYL 100 MCG/2 ML SDV ONE (10:46)
--- NOTE | 2020-01-18 12:15 | PCM.PRNOTE ---
- Free Text/Narrative Note: Date: 01/18/2020 Procedure: screening colonoscopy Endoscopist: Bon Shell MD Findings: Ileocecal valve visualized. Prep was fair. Two small polyps removed. Minor diverticular disease of the sigmoid colon. Detailed Report: The patient was taken to the endoscopy suite and placed in left lateral decubitus position. Time out was performed and monitored anesthesia care was initiated. The anus appeared normal. Digital rectal exam was unremarkable, the prostate felt normal. The lubricated colonoscope was then inserted and advanced all the way to the cecum. The ileocecal valve was visualized. The prep was noted to be fair. On slow withdrawal of the scope, mucosal surfaces were carefully inspected. Two subcentimeter sessile polypoid lesions were biopsied with hot forceps and the bases of the lesions were fulgurated. The patient tolerated the procedure well. Bon Shell MD General Surgery
== END 2020-01-18 13:00 | disposition home or self-care (01) ==
LOC: JD.SDS 08:59
PROVIDERS: ATTEND Surgery
DX: Z12.11 Encounter for screening for malignant neoplasm of colon (principal); D12.4 Benign neoplasm of descending colon; K62.1 Rectal polyp; K57.30 Diverticulosis of large intestine without perforation or abscess without bleeding; E78.5 Hyperlipidemia, unspecified; E03.9 Hypothyroidism, unspecified; Z79.890 Hormone replacement therapy; Z79.899 Other long term (current) drug therapy; Z72.0 Tobacco use
CPT/HCPCS: 45384; J2001; J2704; J3010; J7120; 00812

== ENCOUNTER 2022-04-13 07:49 | Day surgery (SDC) | payer MEDICARE, BC ==
[~2022-04-13 07:49] MED LIST changes: +Morphine 8 MG, EPINEPHrine 0.3 MG, Cefuroxime 750 MG, Ketorolac 30 MG, Sodium Chloride ... PRN; +Sodium Chloride 0.9% 10 ML Syringe FLUSH SCH; +oxyCODONE ER 10 MG TAB.ER PO SCH
[2022-04-13] MEDS ORDERED: Vancomycin 1 GM SDV ONE (08:44)
[2022-04-13] MEDS ORDERED: Lidocaine 1% 4 ML ONE (08:46)
[2022-04-13] MEDS ORDERED: Propofol 200 MG/20 ML SDV ONE ×3 (08:46→10:17)
[2022-04-13] MEDS ORDERED: ceFAZolin 1 GM Vial ONE (09:34)
[2022-04-13] MEDS ORDERED: Lactated Ringers 500 ML ONE (09:55)
[2022-04-13] MEDS ORDERED: Ondansetron 4 MG/2 ML SDV ONE (09:55)
[2022-04-13] MEDS ORDERED: diphenhydrAMINE 50 MG/ML SDV IVPUSH PRN (10:05)
[2022-04-13] MEDS ORDERED: fentaNYL 100 MCG/2 ML SDV IVPUSH PRN (10:05)
[2022-04-13] MEDS ORDERED: Ondansetron 4 MG/2 ML SDV IVPUSH PRN (10:05)
[2022-04-13] MEDS ORDERED: Ketorolac 30 MG/ML SDV ONE (10:50)
[2022-04-13] MEDS ORDERED: oxyCODONE 5 MG Tab PO ONE (15:15)
== END 2022-04-13 15:25 | disposition home or self-care (01) ==
LOC: JD.SDS 07:49
PROVIDERS: ATTEND Orthopaedic Surgery
DX: M16.11 Unilateral primary osteoarthritis, right hip (principal); E78.5 Hyperlipidemia, unspecified; E03.9 Hypothyroidism, unspecified; I71.9 Aortic aneurysm of unspecified site, without rupture; R82.4 Acetonuria; E55.9 Vitamin D deficiency, unspecified; Z87.891 Personal history of nicotine dependence; Z79.899 Other long term (current) drug therapy; Z79.890 Hormone replacement therapy; Z98.890 Other specified postprocedural states
CPT/HCPCS: 0055T; 27130; 36415; 73501; 86850; 86900; 86901; 97110; 97116; 97161; A9270; C1713; C1776; J0171; J0690; J0697; J1885; J2270; J2370; J2405; J2704; J3370; J7120; 01214

== ENCOUNTER 2023-08-05 08:40 | Day surgery (SDC) | payer MEDICARE, BC ==
[~2023-08-05 08:40] MED LIST changes: -Acetaminophen 325 MG Tab PO SCH; -Lidocaine 1%/Sod Bicarbonate in NS 8.4% 1 ML Syringe IDERM PRN; -Pregabalin 25 MG Cap PO SCH; -oxyCODONE ER 10 MG TAB.ER PO SCH
[2023-08-05] MEDS ORDERED: Acetaminophen 325 MG Tab PO SCH (09:00)
[2023-08-05] MEDS ORDERED: oxyCODONE ER 10 MG TAB.ER PO SCH (09:00)
[2023-08-05] MEDS ORDERED: Pregabalin 25 MG Cap PO SCH (09:00)
[2023-08-05] MEDS ORDERED: ceFAZolin 2 GM Vial ONE (09:09)
[2023-08-05] MEDS ORDERED: Lactated Ringers 1,000 ML ONE (09:09)
[2023-08-05] MEDS ORDERED: Midazolam 1 MG/ML 2 ML SDV ONE (09:10)
[2023-08-05] MEDS ORDERED: Propofol 200 MG/20 ML SDV ONE (09:10)
[2023-08-05] MEDS ORDERED: fentaNYL 100 MCG/2 ML SDV ONE (09:10)
[2023-08-05] MEDS ORDERED: Vancomycin 1 GM SDV ONE (09:47)
[2023-08-05] MEDS ORDERED: Tranexamic Acid 1,000 MG/10 ML Vial ONE (09:47)
[2023-08-05 10:40] LABS: INR 1.02; PROTHROMBIN TIME 10.9 SECONDS (9.7-12.0)
[2023-08-05] MEDS ORDERED: ePHEDrine 50 MG/ML SDV ONE (11:30)
[2023-08-05] MEDS ORDERED: Ondansetron 4 MG/2 ML SDV IVPUSH PRN (11:48)
[2023-08-05] MEDS ORDERED: HYDROmorphone 0.5 MG/0.5 ML Syringe IVPUSH PRN (11:48)
[2023-08-05] MEDS ORDERED: fentaNYL 100 MCG/2 ML SDV IVPUSH PRN (11:48)
[2023-08-05] MEDS ORDERED: oxyCODONE 5 MG Tab PO PRN (13:39)
== END 2023-08-05 16:30 | disposition home or self-care (01) ==
LOC: JD.SDS 08:40
PROVIDERS: ATTEND Orthopaedic Surgery
DX: M16.12 Unilateral primary osteoarthritis, left hip (principal); E78.5 Hyperlipidemia, unspecified; E03.9 Hypothyroidism, unspecified; R01.1 Cardiac murmur, unspecified; I10 Essential (primary) hypertension; G20 Parkinson's disease; I67.1 Cerebral aneurysm, nonruptured; M79.671 Pain in right foot; Z98.890 Other specified postprocedural states; Z96.652 Presence of left artificial knee joint; Z79.890 Hormone replacement therapy; Z79.899 Other long term (current) drug therapy
CPT/HCPCS: 01214; 36415; 73501-26-LT; 73501-LT; 85610; 85730; 86850; 86900; 86901; 97116-GP; 97161-GP; 99100; A9270-GY; C1713; C1776; J0171; J0690; J0697; J1885; J2250; J2270; J2704; J3010; J3370; J3490; J7030; J7120